=== PATIENT | male | born 1935 | race Caucasian/White ===

== ENCOUNTER 2018-12-29 23:48 | Emergency (ER) | payer MEDICARE, OTHER ==
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
== END 2018-12-30 01:05 | disposition home or self-care (01) ==
LOC: KA.ED 23:48
DX: S20.219A Contusion of unspecified front wall of thorax, initial encounter (principal); Z79.899 Other long term (current) drug therapy; V49.49XA Driver injured in collision with other motor vehicles in traffic accident, initial encounter
CPT/HCPCS: 71046; 93005; 99284-25

== ENCOUNTER 2022-02-18 14:51 | Emergency (ER) | payer OTHER, MEDICARE ==
[2022-02-18] MEDS ORDERED: Etomidate 2 MG/ML 20 ML SDV IVPUSH ONE (15:00)
[2022-02-18] MEDS ORDERED: Succinylcholine 200 MG/10 ML MDV IV ONE (15:00)
[2022-02-18] MEDS ORDERED: Propofol 200 MG/20 ML SDV IVPUSH ONE (15:00)
[2022-02-18] MEDS ORDERED: Sodium Chloride 0.9% 10 ML Syringe FLUSH PRN (15:09)
[2022-02-18] MEDS ORDERED: Rocuronium 50 MG/5 ML Vial IV ONE (15:30)
[2022-02-18 15:31] LABS: ANION GAP 13.8 mmol/L (5-15); CHLORIDE,CL 112 mmol/L (98-107); SODIUM,NA 145 mmol/L (136-145)
[2022-02-18 15:34] LABS: ESTIMATED GFR 65 mL/min (>=60)
[2022-02-18] MEDS ORDERED: Propofol 200 MG/20 ML SDV ONE (15:42)
[2022-02-18 15:43] LABS: PTT,PARTIAL THROMBOPLSTIN TIME 22.9 SEC (22.8-31.4)
== END 2022-02-18 16:30 ==
LOC: KA.ED 14:51
DX: S07.0XXA Crushing injury of face, initial encounter (principal); I10 Essential (primary) hypertension; M10.9 Gout, unspecified; Z79.899 Other long term (current) drug therapy; V59.9XXA Occupant (driver) (passenger) of pick-up truck or van injured in unspecified traffic accident, initial encounter; Y92.410 Unspecified street and highway as the place of occurrence of the external cause
CPT/HCPCS: 31500; 36415; 43752; 51702; 70450; 70486; 71045; 72125; 72170; 80053; 81001; 84484; 85025; 85610; 85730; 96361; 96374; 99285-25; J0330; J2704; J3490; Q3014